=== PATIENT | male | born 1980 | race American Indian/Alaskan Native ===

== ENCOUNTER 2017-03-09 17:07 | Emergency (ER) | payer MEDICARE ==
[2017-03-09 18:08] LABS: Basophils % (Auto) 1.1 % (0.0-1.8); Eosinophils % (Auto) 2.4 % (0.0-4.3); Hematocrit 47.1 % (35.5-45.6); Hemoglobin 14.7 gm/dl (11.8-15.2); Mean Corpuscular HGB Conc 31 % (32-34); Mean Corpuscular Hemoglobin 28 pg (28-32); Mean Corpuscular Volume 90 fl (84-94); Platelet Count 202 K/mm3 (140-440); Red Blood Count 5.24 M/mm3 (3.65-5.03); Red Cell Distribution Width 16.9 % (13.2-15.2); White Blood Count 6.9 K/mm3 (4.5-11.0)
[2017-03-09 18:12] LABS: Albumin 4.2 g/dL (3.9-5); Albumin/Globulin Ratio 1.5 %; Bilirubin,Total 0.4 mg/dL (0.1-1.2); Calcium 8.4 mg/dL (8.4-10.2); Potassium 3.7 mmol/L (3.6-5.0)
--- NOTE | 2017-03-10 02:48 | Emergency Department Report ---
ED General Adult HPI - General Chief complaint: Neuro Symptoms/Deficit Stated complaint: DIALYSIS, CALCIUM LOW Time Seen by Provider: 03/10/17 02:21 Source: patient Mode of arrival: Ambulatory Limitations: No Limitations - History of Present Illness Initial comments: Low calcium level. The patient had blood work done at his dialysis center on and he was called about a low calcium about 3. And advised to come into the emergency room. The patient does complain of some slight thirst otherwise no other complaints Onset/Timin (day) -: Sudden Associated Symptoms: other (increased thirst) Treatments Prior to Arrival: none - Related Data Home Medications Medication Instructions Recorded Confirmed Last Taken ALPRAZolam [Xanax TAB] 1 mg PO HS 09/02/16 09/02/16 Unknown Amitriptyline [Elavil] 25 mg PO QHS 09/02/16 09/02/16 Unknown Aspirin [Aspirin BABY CHEW TAB] 81 mg PO QDAY 09/02/16 09/02/16 Unknown Calcitriol [Rocaltrol] 0.5 mcg PO TID 09/02/16 09/02/16 Unknown Calcium Carbonate 30 ml PO BID 09/02/16 09/02/16 Unknown Calcium Carbonate [Oyster Shell 4 tab PO QID 09/02/16 09/02/16 Unknown Calcium] Cholecalciferol (Vitamin D3) 50,000 unit PO QWEEK 09/02/16 09/02/16 Unknown [Vitamin D3 10,000 unit] Cholecalciferol (Vitamin D3) 2,000 unit PO QDAY 09/02/16 09/02/16 Unknown [Vitamin D3 2,000 unit] Darunavir [Prezista] 800 mg PO HS 09/02/16 09/02/16 Unknown Hydromorphone HCl [Dilaudid] 4 mg PO Q4H PRN 09/02/16 09/02/16 Unknown Ibuprofen [Motrin 800 MG tab] 800 mg PO Q8HR PRN 09/02/16 09/02/16 Unknown Linaclotide (Nf) [Linzess (Nf)] 290 mcg PO QDAY 09/02/16 09/02/16 Unknown Loratadine [Claritin] 10 mg PO DAILY 09/02/16 09/02/16 Unknown Metoprolol [Lopressor TAB] 25 mg PO BID PRN 09/02/16 09/02/16 Unknown Minoxidil [Loniten] 5 mg PO BID 09/02/16 09/02/16 Unknown NIFEdipine XL [Procardia Xl] 30 mg PO HS PRN 09/02/16 09/02/16 Unknown Ondansetron [Zofran ODT TAB] 4 mg PO Q8HR PRN 09/02/16 09/02/16 Unknown Pantoprazole [Protonix TAB] 40 mg PO QDAY 09/02/16 09/02/16 Unknown Raltegravir Potassium [Isentress] 800 mg PO HS 09/02/16 09/02/16 Unknown Ritonavir [Norvir] 100 mg PO HS 09/02/16 09/02/16 Unknown Scopolamine [Transderm-Scop] 1 each TD Q3D 09/02/16 09/02/16 Unknown Tenofovir [Viread] 300 mg PO QWEEK 09/02/16 09/02/16 Unknown cloNIDine-TTS PATCH [Catapres-Tts 1 patch TD Q7D 09/02/16 09/02/16 Unknown Patch] Previous Rx's Medication Instructions Recorded Last Taken Type Calcium Carbonate [Tums] 1,000 mg PO BID #120 tablet 09/04/16 Unknown Rx Allergies Allergy/AdvReac Type Severity Reaction Status Date / Time amlodipine besylate Allergy Unknown Verified 09/02/16 12:44 [From Denisa] hydralazine [Hydralazine] Allergy Unknown Verified 09/02/16 12:44 levofloxacin [From Levaquin] Allergy Rash Verified 09/02/16 12:44 lisinopril Allergy Shortness Verified 09/02/16 12:44 of Breath metoclopramide HCl Allergy Unknown Verified 09/02/16 12:44 [From Reglan] olmesartan medoxomil Allergy Unknown Verified 09/02/16 12:44 [From Denisa] ciprofloxacin [From Cipro] AdvReac Unknown Verified 09/02/16 12:44 ciprofloxacin HCl AdvReac Unknown Verified 09/02/16 12:44 [From Cipro] plastic tape AdvReac blistering Uncoded 06/27/14 16:32 ED Review of Systems ROS: Stated complaint: DIALYSIS, CALCIUM LOW Other details as noted in HPI Comment: All other systems reviewed and negative ED Past Medical Hx - Past Medical History Hx Hypertension: Yes Hx Heart Attack/AMI: No Hx Congestive Heart Failure: Yes (ACUTE 1 YEAR AGO RESOLVED) Hx Diabetes: No Hx Deep Vein Thrombosis: Yes Hx Pulmonary Embolism: Yes Hx GERD: Yes Hx Liver Disease: Yes (fatty liver disease) Hx Renal Disease: Yes (HD) Hx Sickle Cell Disease: No Hx Arthritis: Yes Hx Headaches / Migraines: Yes Hx Seizures: No Hx Kidney Stones: No Hx Psychiatric Treatment: Yes (depression) Hx Asthma: Yes Hx COPD: Yes ([address] PATINO) Hx Tuberculosis: No Hx Dementia: Yes Hx HIV: Yes Additional medical history: fibromyalgia, neuropathy,pancreatitis, colitis, gastroparisis - Surgical History Hx Coronary Stent: No Hx Open Heart Surgery: No Hx Pacemaker: No Hx Internal Defibrillator: No Hx Cholecystectomy: Yes Hx Appendectomy: No Hx Breast Surgery: No Additional Surgical History: LUE fistula, tonsillectomy,Parathyroid removed - Social History Smoking Status: Never Smoker Substance Use Type: None - Medications Home Medications: Home Medications Medication Instructions Recorded Confirmed Last Taken Type ALPRAZolam [Xanax TAB] 1 mg PO HS 09/02/16 09/02/16 Unknown History Amitriptyline [Elavil] 25 mg PO QHS 09/02/16 09/02/16 Unknown History Aspirin [Aspirin BABY CHEW TAB] 81 mg PO QDAY 09/02/16 09/02/16 Unknown History Calcitriol [Rocaltrol] 0.5 mcg PO TID 09/02/16 09/02/16 Unknown History Calcium Carbonate 30 ml PO BID 09/02/16 09/02/16 Unknown History Calcium Carbonate [Oyster Shell 4 tab PO QID 09/02/16 09/02/16 Unknown History Calcium] Cholecalciferol (Vitamin D3) 50,000 unit PO QWEEK 09/02/16 09/02/16 Unknown History [Vitamin D3 10,000 unit] Cholecalciferol (Vitamin D3) 2,000 unit PO QDAY 09/02/16 09/02/16 Unknown History [Vitamin D3 2,000 unit] Darunavir [Prezista] 800 mg PO HS 09/02/16 09/02/16 Unknown History Hydromorphone HCl [Dilaudid] 4 mg PO Q4H PRN 09/02/16 09/02/16 Unknown History Ibuprofen [Motrin 800 MG tab] 800 mg PO Q8HR PRN 09/02/16 09/02/16 Unknown History Linaclotide (Nf) [Linzess (Nf)] 290 mcg PO QDAY 09/02/16 09/02/16 Unknown History Loratadine [Claritin] 10 mg PO DAILY 09/02/16 09/02/16 Unknown History Metoprolol [Lopressor TAB] 25 mg PO BID PRN 09/02/16 09/02/16 Unknown History Minoxidil [Loniten] 5 mg PO BID 09/02/16 09/02/16 Unknown History NIFEdipine XL [Procardia Xl] 30 mg PO HS PRN 09/02/16 09/02/16 Unknown History Ondansetron [Zofran ODT TAB] 4 mg PO Q8HR PRN 09/02/16 09/02/16 Unknown History Pantoprazole [Protonix TAB] 40 mg PO QDAY 09/02/16 09/02/16 Unknown History Raltegravir Potassium [Isentress] 800 mg PO HS 09/02/16 09/02/16 Unknown History Ritonavir [Norvir] 100 mg PO HS 09/02/16 09/02/16 Unknown History Scopolamine [Transderm-Scop] 1 each TD Q3D 09/02/16 09/02/16 Unknown History Tenofovir [Viread] 300 mg PO QWEEK 09/02/16 09/02/16 Unknown History cloNIDine-TTS PATCH [Catapres-Tts 1 patch TD Q7D 09/02/16 09/02/16 Unknown History Patch] Calcium Carbonate [Tums] 1,000 mg PO BID #120 tablet 09/04/16 Unknown Rx ED Physical Exam - General Limitations: No Limitations General appearance: alert, in no apparent distress - Head Head exam: Present: atraumatic, normocephalic - Eye Eye exam: Present: normal appearance, PERRL Pupils: Present: normal accommodation - ENT ENT exam: Present: normal exam, normal orophraynx, mucous membranes moist - Neck Neck exam: Present: normal inspection - Respiratory Respiratory exam: Present: normal lung sounds bilaterally. Absent: respiratory distress, wheezes - Cardiovascular Cardiovascular Exam: Present: regular rate, normal rhythm - GI/Abdominal GI/Abdominal exam: Present: soft. Absent: distended, tenderness, guarding - Rectal Rectal exam: Present: deferred - Extremities Exam Extremities exam: Present: normal inspection, full ROM - Back Exam Back exam: Present: normal inspection, full ROM - Neurological Exam Neurological exam: Present: alert, oriented X3. Absent: altered - Psychiatric Psychiatric exam: Present: normal affect, normal mood - Skin Skin exam: Present: warm, intact ED Course Vital Signs 03/09/17 17:27 Temperature 98.1 F Pulse Rate 97 H Respiratory 16 Rate Blood Pressure 121/79 O2 Sat by Pulse 97 Oximetry ED Medical Decision Making - Lab Data Result diagrams: 03/09/17 17:40 03/09/17 17:40 - Medical Decision Making Patient's calcium level is normal here at 8.4. I did inform the patient. Critical Care Time: No Critical care attestation.: If time is entered above; I have spent that time in minutes in the direct care of this critically ill patient, excluding procedure time. ED Disposition Clinical Impression: Abnormal laboratory test Disposition: DC-01 TO HOME OR SELFCARE Is pt being admited?: No Does the pt Need Aspirin: No Condition: Stable Referrals: PRIMARY CARE, [Primary Care Provider] - 3-5 Days Time of Disposition: 02:53 Print Language: HUNGARIAN
[2017-03-10 03:07] VITALS: BP 102/49
== END 2017-03-10 03:00 | disposition home or self-care (01) ==
LOC: ED 17:07
DX: E83.51 Hypocalcemia (principal); I10 Essential (primary) hypertension; I50.9 Heart failure, unspecified; I82.409 Acute embolism and thrombosis of unspecified deep veins of unspecified lower extremity; K21.9 Gastro-esophageal reflux disease without esophagitis; M19.90 Unspecified osteoarthritis, unspecified site; J45.909 Unspecified asthma, uncomplicated; J44.9 Chronic obstructive pulmonary disease, unspecified; N28.9 Disorder of kidney and ureter, unspecified; Z21 Asymptomatic human immunodeficiency virus [HIV] infection status; Z88.1 Allergy status to other antibiotic agents; Z88.8 Allergy status to other drugs, medicaments and biological substances; Z91.048 Other nonmedicinal substance allergy status
CPT/HCPCS: 36415; 80053; 85025; 99283